=== PATIENT | male | born 1945 | race Caucasian/White ===

== ENCOUNTER 2016-02-27 04:17 | Emergency (ER) | payer OTHER | END 2016-02-27 06:09 | disposition home or self-care (01) | LOC: ER 04:17 | CPT/HCPCS: 71020 ==

== ENCOUNTER 2016-03-17 22:40 | Inpatient (IN) | payer OTHER ==
[~2016-03-17] VITALS: Ht 180.3 cm; Wt 78.0 kg
[2016-03-18] MEDS ORDERED: Furosemide 40 MG/4 ML VIAL ONE (02:24)
[2016-03-18] MEDS ORDERED: ONDANSETRON 4 MG VIAL IV PRN (02:35)
[2016-03-18] MEDS ORDERED: SALINE FLUSH 10 ML FLUSH PRN (02:35)
[2016-03-18] MEDS ORDERED: ACETAMINOPHEN 325 MG TAB PO PRN (02:35)
[2016-03-18] MEDS ORDERED: ENOXAPARIN 80 MG/0.8 ML SYR SUBQ ONE (02:47)
[2016-03-18] MEDS ORDERED: humuLIN REG INSULIN ONE (02:47)
[2016-03-18] MEDS ORDERED: SODIUM CHLORIDE 0.9% 1,000 ML IV SCH (02:50)
[2016-03-18] MEDS ORDERED: ENOXAPARIN 80 MG/0.8 ML SYR SUBQ SCH (03:10)
[2016-03-18] MEDS ORDERED: GLUCAGON 1 MG VIAL IM PRN ×2 (03:20→03:40)
[2016-03-18] MEDS ORDERED: DEXTROSE 50% SYRINGE 50 ML IV PRN ×2 (03:20→03:40)
[2016-03-18 05:34] VITALS: BP_SYST 139; RESP 20; TEMP 101.1
[2016-03-18] MEDS ORDERED: PNEUMO VAC 25 MCG/0.5 ML VL IM.VACC ONE (05:35)
[2016-03-18] MEDS: SODIUM CHLORIDE 0.9% FLUSH BAG 500 ML IV SCH (06:00)
[2016-03-18 06:06] VITALS: RESP 18
[2016-03-18] MEDS: SODIUM CHLORIDE 0.9% 1,000 ML IV SCH (06:22)
[2016-03-18] MEDS ORDERED: PLEASE ENTER HEIGHT XX SCH (08:00)
[2016-03-18] MEDS ORDERED: [UNRECOGNIZED DRUG - OTHER] XX SCH (08:00)
[2016-03-18] MEDS: SALINE FLUSH 10 ML FLUSH SCH ×2 (08:00→21:25)
[2016-03-18] MEDS ORDERED: AZITHROMYCIN 500 MG in SODIUM CHLORIDE 0.9% 250 ML IV SCH (09:00)
[2016-03-18] MEDS ORDERED: CEFTRIAXONE 1 GM in SODIUM CHLORIDE 0.9% 50 ML IV SCH (09:00)
[2016-03-18 11:20] VITALS: Ht 180.3 cm; Wt 78.0 kg
[2016-03-18 11:21] VITALS: BP_SYST 134; RESP 20; TEMP 100.2
[2016-03-18 16:11] VITALS: BP_SYST 126; RESP 20; TEMP 98.1
[2016-03-18] MEDS: ENOXAPARIN 80 MG/0.8 ML SYR SUBQ SCH (16:37)
[2016-03-18] MEDS ORDERED: PHARMACY TO DOSE MERREM XX SCH (17:35)
[2016-03-18] MEDS: LISINOPRIL 20 MG TAB PO SCH (18:18)
[2016-03-18] MEDS: amLODIPine 10 MG TAB PO SCH (18:18)
[2016-03-18] MEDS: Finasteride 5 MG TAB PO SCH (18:18)
[2016-03-18 19:42] VITALS: BP_SYST 118; RESP 18; TEMP 98.5
[2016-03-18] MEDS: Atorvastatin 40 MG TAB PO SCH (21:26)
[2016-03-18] MEDS: TAMSULOSIN 0.4 MG CAP PO SCH (21:26)
[2016-03-18 23:51] VITALS: BP_SYST 112; RESP 18; TEMP 98.5
[2016-03-19] MEDS: ENOXAPARIN 80 MG/0.8 ML SYR SUBQ SCH ×2 (04:06→16:40)
[2016-03-19 04:39] VITALS: BP_SYST 116; RESP 18; TEMP 98.5
[2016-03-19] MEDS: SODIUM CHLORIDE 0.9% FLUSH BAG 500 ML IV SCH (06:00)
[2016-03-19 07:31] VITALS: BP_SYST 130; RESP 20; TEMP 98
[2016-03-19] MEDS ORDERED: MISSING DOSE XX ONE (09:05)
[2016-03-19] MEDS: SALINE FLUSH 10 ML FLUSH SCH ×2 (09:08→21:12)
[2016-03-19 11:37] VITALS: BP_SYST 122; RESP 20; TEMP 97.8
[2016-03-19] MEDS: LISINOPRIL 20 MG TAB PO SCH (11:45)
[2016-03-19] MEDS: Finasteride 5 MG TAB PO SCH (11:45)
[2016-03-19] MEDS: amLODIPine 10 MG TAB PO SCH (11:46)
[2016-03-19 14:59] VITALS: BP_SYST 120; RESP 20; TEMP 97.8
[2016-03-19 20:39] VITALS: BP_SYST 140; RESP 20; TEMP 98.3
[2016-03-19] MEDS: Atorvastatin 40 MG TAB PO SCH (21:11)
[2016-03-19] MEDS: TAMSULOSIN 0.4 MG CAP PO SCH (21:11)
[2016-03-19] MEDS: SODIUM CHLORIDE 0.9% 1,000 ML IV SCH (21:12)
[2016-03-19 22:39] VITALS: BP_SYST 140; RESP 20; TEMP 98.4
[2016-03-20] VITALS (11 sets, daily range): BP systolic 102–140; RESP 14–20; TEMP 97–99.2
[2016-03-20] MEDS: SODIUM CHLORIDE 0.9% FLUSH BAG 500 ML IV SCH (03:00)
[2016-03-20] MEDS: ENOXAPARIN 80 MG/0.8 ML SYR SUBQ SCH (03:00)
[2016-03-20] MEDS: SALINE FLUSH 10 ML FLUSH SCH ×2 (08:00→20:07)
[2016-03-20] MEDS ORDERED: MISSING DOSE XX ONE (08:30)
[2016-03-20] MEDS: amLODIPine 10 MG TAB PO SCH (09:10)
[2016-03-20] MEDS: Finasteride 5 MG TAB PO SCH (09:10)
[2016-03-20] MEDS: Atorvastatin 40 MG TAB PO SCH (20:06)
[2016-03-20] MEDS: TAMSULOSIN 0.4 MG CAP PO SCH (20:06)
[2016-03-21 03:03] VITALS: BP_SYST 150; RESP 20; TEMP 98.4
[2016-03-21] MEDS: SODIUM CHLORIDE 0.9% FLUSH BAG 500 ML IV SCH (05:56)
[2016-03-21 07:56] VITALS: BP_SYST 148; RESP 18; TEMP 98.3
[2016-03-21] MEDS: SALINE FLUSH 10 ML FLUSH SCH ×2 (08:08→20:01)
[2016-03-21] MEDS: amLODIPine 10 MG TAB PO SCH (08:09)
[2016-03-21] MEDS: ENOXAPARIN 30 MG/0.3 ML SYR SUBQ SCH (08:09)
[2016-03-21] MEDS: Finasteride 5 MG TAB PO SCH (08:09)
[2016-03-21] MEDS ORDERED: KCL CR 20 MEQ TAB PO ONE (11:00)
[2016-03-21 12:04] VITALS: BP_SYST 144; RESP 20; TEMP 97.8
[2016-03-21 16:06] VITALS: BP_SYST 136; RESP 20; TEMP 97.9
[2016-03-21 19:08] VITALS: BP_SYST 142; RESP 18; TEMP 98.4
[2016-03-21] MEDS: TAMSULOSIN 0.4 MG CAP PO SCH (20:02)
[2016-03-21] MEDS: Atorvastatin 40 MG TAB PO SCH (20:02)
[2016-03-22] VITALS (7 sets, daily range): BP systolic 132–152; RESP 16–20; TEMP 97.2–98.7
[2016-03-22] MEDS: SODIUM CHLORIDE 0.9% FLUSH BAG 500 ML IV SCH (06:51)
[2016-03-22] MEDS: amLODIPine 10 MG TAB PO SCH (08:48)
[2016-03-22] MEDS: Finasteride 5 MG TAB PO SCH (08:48)
[2016-03-22] MEDS: ENOXAPARIN 30 MG/0.3 ML SYR SUBQ SCH (08:51)
[2016-03-22] MEDS: SALINE FLUSH 10 ML FLUSH SCH ×2 (09:35→21:11)
[2016-03-22] MEDS ORDERED: MISSING DOSE XX ONE (10:20)
[2016-03-22] MEDS: TAMSULOSIN 0.4 MG CAP PO SCH (21:12)
[2016-03-22] MEDS: Atorvastatin 40 MG TAB PO SCH (21:12)
[2016-03-23 04:21] VITALS: BP_SYST 140; RESP 16; TEMP 97.1
[2016-03-23] MEDS: SODIUM CHLORIDE 0.9% FLUSH BAG 500 ML IV SCH (06:18)
[2016-03-23 08:10] VITALS: BP_SYST 128; RESP 12; TEMP 97.6
[2016-03-23] MEDS: amLODIPine 10 MG TAB PO SCH (08:59)
[2016-03-23] MEDS: SALINE FLUSH 10 ML FLUSH SCH (08:59)
[2016-03-23] MEDS: Finasteride 5 MG TAB PO SCH (08:59)
[2016-03-23] MEDS: ENOXAPARIN 30 MG/0.3 ML SYR SUBQ SCH (09:02)
[2016-03-23 11:36] VITALS: BP_SYST 112; RESP 20; TEMP 98.5
[2016-03-23 14:55] VITALS: BP_SYST 120; RESP 20; TEMP 99.3
[2016-03-24] MEDS ORDERED: SODIUM CHLORIDE 0.9% FLUSH BAG 500 ML IV SCH (06:00)
== END 2016-03-23 18:05 | disposition home health service (06) | DRG 682 ==
LOC: ENRESERVTM → ENRESERVDT → ER 22:40 → ENPENDDIS 03-18 02:32 → EMR 03-18 02:32 → PCU 03-18 05:03 → PCU2 03-18 17:40 → 3NT 03-19 20:13
PROVIDERS: ADMIT Internal Medicine; ATTEND Internal Medicine
PROC: 0H96XZZ Drainage of Back Skin, External Approach (ICD-10-PCS; principal; 2016-03-19)
PROC: 02HV33Z Insertion of Infusion Device into Superior Vena Cava, Percutaneous Approach (ICD-10-PCS; 2016-03-22)
PROC: B548ZZA Ultrasonography of Superior Vena Cava, Guidance (ICD-10-PCS; 2016-03-22)
DX: N17.9 Acute kidney failure, unspecified (principal); G93.41 Metabolic encephalopathy; G20 Parkinson's disease; N39.0 Urinary tract infection, site not specified; J44.9 Chronic obstructive pulmonary disease, unspecified; L03.90 Cellulitis, unspecified; F02.80 Dementia in other diseases classified elsewhere, unspecified severity, without behavioral disturbance, psychotic disturbance, mood disturbance, and anxiety; E11.9 Type 2 diabetes mellitus without complications; B96.20 Unspecified Escherichia coli [E. coli] as the cause of diseases classified elsewhere; E78.5 Hyperlipidemia, unspecified; Z16.12 Extended spectrum beta lactamase (ESBL) resistance; R33.9 Retention of urine, unspecified; L72.3 Sebaceous cyst; R91.8 Other nonspecific abnormal finding of lung field; R09.02 Hypoxemia; D64.9 Anemia, unspecified; Z79.84 Long term (current) use of oral hypoglycemic drugs; F17.210 Nicotine dependence, cigarettes, uncomplicated; N13.30 Unspecified hydronephrosis
CPT/HCPCS: 36415; 36430; 36569; 36600; 71010; 71020; 76770; 76937; 78582; 80048; 80053; 81001; 82274; 82553; 82607; 82728; 82746; 82803; 82947; 83090; 83540; 83615; 83880; 83921; 84466; 84484; 85007; 85014; 85018; 85025; 85027; 85046; 85379; 86850; 86900; 86901; 86923; 87077; 87088; 87186; 90732; 93306; 94799; 96372; 96374; 96375; 99232; 99233; 99239